=== PATIENT | male | born 1945 | race Asian ===

== ENCOUNTER 2017-08-20 17:40 | Inpatient (IN) | payer OTHER ==
[~2017-08-20] VITALS: Ht 165.1 cm; Wt 50.1 kg
[2017-08-20 17:54] VITALS: BP 194/103; TEMP 98.3
[2017-08-20 19:32] LABS: PLATELET COUNT 224 K/uL (142-355)
[2017-08-20 19:39] LABS: POTASSIUM 4.9 mmol/L (3.6-5.2)
[2017-08-21] VITALS (25 sets, daily range): BP systolic 132–226; BP diastolic 75–120; TEMP 97.6–98.5; Ht 165.1 cm; Wt 50.1 kg
[2017-08-22] VITALS (20 sets, daily range): BP systolic 124–455; BP diastolic 67–91; TEMP 97.2–98.4
[2017-08-22 14:05] LABS: PLATELET COUNT 192 K/uL (142-355)
[2017-08-22 14:28] LABS: POTASSIUM 4.2 mmol/L (3.6-5.2)
[2017-08-23] VITALS: BP 167/82; TEMP 97.4
[2017-08-23 04:00] VITALS: BP 1163/78; TEMP 97.6
[2017-08-23 06:31] LABS: PLATELET COUNT 205 K/uL (142-355)
[2017-08-23 06:45] LABS: POTASSIUM 4.2 mmol/L (3.6-5.2)
[2017-08-23 08:00] VITALS: BP 123/67; TEMP 97.8
[2017-08-23 12:00] VITALS: BP 135/78; TEMP 98
[2017-08-23 16:00] VITALS: BP 170/84; TEMP 98.3
== END 2017-08-23 20:41 | disposition home health service (06) | DRG 158 ==
LOC: ED 17:40 → ICU 22:57 → MED/SURG 22:57 → ICU 22:57 → MED/SURG 23:45 → ICU 23:45 → MED/SURG 08-22 19:10
PROVIDERS: Specialist; ADMIT Family Medicine
PROC: 0DC58ZZ Extirpation of Matter from Esophagus, Via Natural or Artificial Opening Endoscopic (ICD-10-PCS; principal; 2017-08-21)
PROC: 0BC78ZZ Extirpation of Matter from Left Main Bronchus, Via Natural or Artificial Opening Endoscopic (ICD-10-PCS; 2017-08-21)
PROC: 0BC18ZZ Extirpation of Matter from Trachea, Via Natural or Artificial Opening Endoscopic (ICD-10-PCS; 2017-08-21)
PROC: 0BC38ZZ Extirpation of Matter from Right Main Bronchus, Via Natural or Artificial Opening Endoscopic (ICD-10-PCS; 2017-08-21)
DX: T18.0XXA Foreign body in mouth, initial encounter (principal); T17.890A Other foreign object in other parts of respiratory tract causing asphyxiation, initial encounter; X58.XXXA Exposure to other specified factors, initial encounter; Y93.89 Activity, other specified; Y92.89 Other specified places as the place of occurrence of the external cause; K22.2 Esophageal obstruction; K44.9 Diaphragmatic hernia without obstruction or gangrene; I16.0 Hypertensive urgency; F01.50 Vascular dementia, unspecified severity, without behavioral disturbance, psychotic disturbance, mood disturbance, and anxiety; K22.4 Dyskinesia of esophagus; C61 Malignant neoplasm of prostate; Z91.19 Patient's noncompliance with other medical treatment and regimen
CPT/HCPCS: 36415; 80048; 80053; 81000; 82306; 83690; 83735; 84100; 84154; 84443; 85027; J0360; J1720; J2001; J2060; J2704; J3411; J3475; J3490; Q9963

== ENCOUNTER 2018-05-14 16:27 | Emergency (ER) | payer OTHER ==
[~2018-05-14] VITALS: Ht 175.3 cm; Wt 54.4 kg
[2018-05-14 16:35] VITALS: TEMP 98.8
[2018-05-14 18:30] VITALS: BP 170/88
== END 2018-05-14 18:42 | disposition home or self-care (01) ==
LOC: ED 16:27
DX: R13.19 Other dysphagia (principal); K22.2 Esophageal obstruction
CPT/HCPCS: 96372; 99282; J1610

== ENCOUNTER 2018-10-05 17:59 | Emergency (ER) | payer OTHER ==
[~2018-10-05] VITALS: Ht 175.3 cm; Wt 45.8 kg
[2018-10-05 19:35] VITALS: BP 152/79; TEMP 97.9
== END 2018-10-05 19:35 | disposition home or self-care (01) ==
LOC: ED 17:59
DX: M72.2 Plantar fascial fibromatosis (principal); M79.671 Pain in right foot
CPT/HCPCS: 99281

== ENCOUNTER 2019-05-31 21:47 | Observation (INO) | payer OTHER ==
[~2019-05-31] VITALS: Ht 172.7 cm; Wt 44.0 kg
[2019-05-31 22:06] VITALS: BP 154/86
[2019-05-31 23:59] LABS: PLATELET COUNT 310 K/uL (142-355)
[2019-06-01 05:28] VITALS: BP 181/94; TEMP 98.3; Ht 172.7 cm; Wt 44.0 kg
[2019-06-01 08:00] VITALS: BP 160/82
[2019-06-01 11:51] LABS: PARTIAL THROMBOPLASTIN TIME 61.2 SECONDS (24.5-33.6)
[2019-06-01 19:35] VITALS: BP 157/84; TEMP 97.9
[2019-06-02] VITALS: BP 144/84; TEMP 98
[2019-06-02 04:00] VITALS: BP 168/88; TEMP 98.2
[2019-06-02 08:00] VITALS: BP 170/85
[2019-06-02 08:56] LABS: PLATELET COUNT 335 K/uL (142-355)
[2019-06-02 09:08] LABS: POTASSIUM 3.7 mmol/L (3.6-5.2)
== END 2019-06-02 10:55 | disposition home or self-care (01) ==
LOC: ED 21:47 → MED/SURG 06-01 02:30
PROVIDERS: Family Medicine; ADMIT Family Medicine
DX: R07.89 Other chest pain (principal); E86.0 Dehydration; I12.9 Hypertensive chronic kidney disease with stage 1 through stage 4 chronic kidney disease, or unspecified chronic kidney disease; N18.3 Chronic kidney disease, stage 3 (moderate); N17.8 Other acute kidney failure; F03.90 Unspecified dementia, unspecified severity, without behavioral disturbance, psychotic disturbance, mood disturbance, and anxiety; J44.9 Chronic obstructive pulmonary disease, unspecified; I51.7 Cardiomegaly; E87.1 Hypo-osmolality and hyponatremia; Z72.0 Tobacco use; D63.8 Anemia in other chronic diseases classified elsewhere
CPT/HCPCS: 36415; 80053; 81000; 82550; 83880; 84484; 85027; 85610; 85730; 93005; 96360; 96365; 96366; 96372; 96375; 99220; 99284; G0378; J0360; J1650

== ENCOUNTER 2019-10-06 16:12 | Inpatient (IN) | payer OTHER ==
[~2019-10-06] VITALS: Ht 185.4 cm; Wt 42.7 kg
[2019-10-06 16:22] VITALS: BP 162/107; TEMP 97.5
[2019-10-06 17:01] LABS: PLATELET COUNT 203 K/uL (142-355)
[2019-10-06 17:05] LABS: POTASSIUM 4.2 mmol/L (3.6-5.2)
[2019-10-06 18:15] VITALS: BP 204/124
[2019-10-06 18:46] VITALS: BP 230/97
[2019-10-06 19:00] VITALS: BP 173/67
[2019-10-06 19:23] VITALS: BP 153/75
[2019-10-06 22:00] VITALS: BP 180/70; TEMP 98.1; Ht 185.4 cm; Wt 42.7 kg
[2019-10-07] VITALS: BP 208/93; TEMP 98
[2019-10-07 03:51] VITALS: BP 210/95; TEMP 98.6
[2019-10-07 08:00] VITALS: BP 192/102; TEMP 98.7
[2019-10-07 12:27] VITALS: BP 175/107; TEMP 97.9
[2019-10-07 16:19] VITALS: BP 164/92; TEMP 96.2
[2019-10-07 20:00] VITALS: BP 152/87; TEMP 97.7
[2019-10-08] VITALS: BP 182/93; TEMP 97.4
[2019-10-08 04:00] VITALS: BP 183/97; TEMP 97.7
[2019-10-08 05:32] LABS: PLATELET COUNT 174 K/uL (142-355)
[2019-10-08 06:01] LABS: POTASSIUM 4.3 mmol/L (3.6-5.2)
[2019-10-08 08:18] VITALS: BP 241/113; TEMP 97.2
[2019-10-08 13:25] VITALS: BP 241/120; TEMP 98.6
[2019-10-08 20:00] VITALS: BP 161/83; TEMP 97.4
[2019-10-09] VITALS: BP 176/76; TEMP 97.1
[2019-10-09 04:00] VITALS: BP 181/89; TEMP 97.3
[2019-10-09 09:22] VITALS: BP 179/74; TEMP 97.5
[2019-10-09 20:00] VITALS: BP 214/106; TEMP 98.6
[2019-10-09 23:55] VITALS: BP 220/125; TEMP 98.8
[2019-10-10 04:00] VITALS: BP 218/109; TEMP 98.6
[2019-10-10 08:22] VITALS: BP 221/113; TEMP 98.5
== END 2019-10-10 11:21 | disposition home health service (06) | DRG 724 ==
LOC: ED 16:12 → MED/SURG 18:00
PROVIDERS: Family Medicine; ADMIT Hospitalist
DX: C61 Malignant neoplasm of prostate (principal); E86.0 Dehydration; F03.90 Unspecified dementia, unspecified severity, without behavioral disturbance, psychotic disturbance, mood disturbance, and anxiety; R63.0 Anorexia; I95.89 Other hypotension; R07.89 Other chest pain; R41.82 Altered mental status, unspecified; I10 Essential (primary) hypertension; R62.7 Adult failure to thrive
CPT/HCPCS: 36415; 80053; 80307; 80320; 81000; 82550; 82947; 83880; 84153; 84443; 84484; 85027; 85610; 85730; 93005; 96360; 96375; 99284; J0360; J1650; J2270; J7060